=== PATIENT | female | born 1950 | race Caucasian/White ===

== ENCOUNTER 2025-04-27 08:09 | Day surgery (SDC) | payer MEDICARE, OTHER ==
[~2025-04-27 08:09] MED LIST: Lactated Ringers 1,000 ML IV SCH
[2025-04-27] MEDS ORDERED: Propofol 200 MG/20 ML SDV ONE ×2 (08:48)
[2025-04-27 09:20] VITALS: PULSE 80
[2025-04-27 14:50] VITALS: BP 134/58
== END 2025-04-27 10:35 | disposition home or self-care (01) ==
LOC: CC.SDS 08:09
PROVIDERS: ATTEND Family Medicine
DX: K29.50 Unspecified chronic gastritis without bleeding (principal); K44.9 Diaphragmatic hernia without obstruction or gangrene; K57.30 Diverticulosis of large intestine without perforation or abscess without bleeding; E11.9 Type 2 diabetes mellitus without complications; K21.9 Gastro-esophageal reflux disease without esophagitis; E78.5 Hyperlipidemia, unspecified; K59.00 Constipation, unspecified; Z88.8 Allergy status to other drugs, medicaments and biological substances; Z88.2 Allergy status to sulfonamides; Z79.899 Other long term (current) drug therapy
CPT/HCPCS: 00813; 87077; 88305; 88342; 99100; J2704